=== PATIENT | female | born 1995 | race Caucasian/White ===

== ENCOUNTER 2023-05-11 07:13 | Emergency (ER) | payer BC ==
[~2023-05-11] VITALS: Ht 162.6 cm; Wt 73.9 kg
[2023-05-11 08:00] LABS: Basophils # (auto) 0.1 10 ^3/uL (0-0.2); Basophils % (auto) 0.5 % (0.0-2.0); Eosinophils # (auto) 0.2 10 ^3/uL (0-0.8); Hematocrit 39.6 % (36.0-46.0); Hemoglobin 13.1 g/dL (12.2-16.2); Lymphocytes # (auto) 0.9 10 ^3/uL (0.4-5.4); Mean Corpuscular Hgb Conc. 33.1 g/dL (32.0-36.0); Mean Corpuscular Volume 90.5 fL (80.0-100.0); Monocytes # (auto) 0.5 10 ^3/uL (0-1.3); Monocytes % (auto) 4.7 % (0.0-12.0); Neutrophils # (auto) 9.3 10 ^3/uL (1.6-8.6); Neutrophils % (auto) 84.8 % (37.0-80.0); Red Blood Cells 4.38 10^6/uL (4.0-5.20); Red Cell Distribution Width 13.1 % (11.8-14.3)
[2023-05-11 08:07] LABS: Chloride 106 mmol/L (98-107); Potassium 3.9 mmol/L (3.5-5.1); Sodium 137 mmol/L (136-145)
[2023-05-11 08:08] LABS: Anion Gap 7 (5-15); Carbon Dioxide 24 mmol/L (20-30)
[2023-05-11 08:09] LABS: Calcium 9.9 mg/dL (8.5-10.1)
[2023-05-11 08:13] LABS: Glucose 123 mg/dL (74-106)
[2023-05-11 08:15] LABS: Urine Bacteria NONE SEEN /hpf (None Seen); Urine Blood 1+ /uL (Negative); Urine Clarity CLOUDY (Clear); Urine Color Yellow (Yellow); Urine Hyaline Cast FEW /lpf (0 - 2); Urine Mucus FEW (None Seen); Urine Protein, UAD TRACE (Negative); Urine Specific Gravity 1.021 (1.001-1.035); Urine Urobilinogen Normal (Negative); Urine WBC 1 /hpf (0 - 5)
[2023-05-11] MEDS: ALBUTEROL SULF 2.5 MG/0.5ML(0.5%) NEB SOLN NEB ONE (08:15)
[2023-05-11] MEDS: IPRATROPIUM BROM 0.5 MG/2.5ML INH SOL NEB ONE (08:15)
[2023-05-11 08:17] LABS: BUN/Creatinine Ratio 8.2 (10.0-20.0); Blood Urea Nitrogen < 5 mg/dL (9-23)
[2023-05-11] MEDS: methylPREDNISolone SOD SUCC 125 MG/2 ML VL IV ONE (08:37)
[2023-05-11 09:29] LABS: COVID19 ANTIGEN SOFIA FIA NEGATIVE (NEGATIVE); Rapid Influenza A Negative (Negative); Rapid Influenza B Negative (Negative)
[2023-05-11] MEDS: cefTRIAXone 1GM/50ML D5W 50 ML IV ONE (10:30)
[2023-05-11] MEDS: ENOXAPARIN SOD 80 MG/0.8ML SYRINGE SC ONE (10:39)
[2023-05-11] MEDS: IOHEXOL 350 MG/ML 100ML IJ ONE (13:08)
[2023-05-11] MEDS ORDERED: ALBUAER3 IN (15:20)
[2023-05-11] MEDS ORDERED: PRED10TA PO (15:20)
[2023-05-11] MEDS ORDERED: AMOX500T3 PO (15:21)
[2023-05-11 15:33] VITALS: BP 146/88; PULSE 124; RESP 17; TEMP 98; O2SAT 94
== END 2023-05-11 15:19 | disposition home or self-care (01) ==
LOC: ER 07:13
DX: J45.901 Unspecified asthma with (acute) exacerbation (principal); Z20.822 Contact with and (suspected) exposure to COVID-19
CPT/HCPCS: 36415; 71045; 71275; 80048; 81001; 85025; 85379; 87426; 87804; 94640; 96372; 96374; 99285; J0696; J1650; J2930; J7644; Q9967